=== PATIENT | male | born 1975 | race Two or more races ===

== ENCOUNTER 2016-09-01 01:58 | Inpatient (IN) | payer MEDICAID ==
[~2016-09-01] VITALS: Ht 165.1 cm; Wt 80.8 kg
[2016-09-01 01:40] VITALS: BP 167/103
[2016-09-01] MEDS ORDERED: NITROGLYCERIN 0.4 MG SL TAB SL PRN (03:15)
[2016-09-01] MEDS ORDERED: MORPHINE SULF INJ 2 MG/ML SYRINGE 1ML IV PRN (03:15)
[2016-09-01 03:39] LABS: Basophils # (auto) 0 uL; Basophils % (auto) 0.1 % (0.0-2.0); Eosinophils # (auto) 0.2 uL; Eosinophils % (auto) 1.8 % (0.0-7.0); Hematocrit 46.7 % (41.0-53.0); Lymphocytes % (auto) 23.5 % (10.0-50.0); Mean Corpuscular Hemoglobin 29.9 pg (28.0-32.0); Mean Corpuscular Hgb Conc. 34.2 g/dL (32.0-36.0); Mean Corpuscular Volume 87.3 fL (80.0-100.0); Mean Platelet Volume 9.3 fL (7.4-10.4); Monocytes # (auto) 1.2 uL; Monocytes % (auto) 9.5 % (0.0-12.0); Neutrophils # (auto) 8.4 uL; Neutrophils % (auto) 65.1 % (37.0-80.0); Platelet Count (auto) 241 10^3/uL (140-450); Red Cell Distribution Width 13.6 % (11.6-16.0); White Blood Cell 12.9 10^3/uL (4.4-10.8)
[2016-09-01] MEDS ORDERED: HEPARIN DRIP/D5W 100UNITS/ML 250 ML IV SCH (03:50)
[2016-09-01 04:00] VITALS: BP 153/101
[2016-09-01 04:02] LABS: Partial Thromboplastin Time 57.9 sec (22.64-33.71); Prothrombin Time 10.9 sec (9.37-12.3)
[2016-09-01 04:06] LABS: Calcium 8.9 mg/dL (8.5-10.1)
[2016-09-01 07:55] VITALS: BP 132/84
[2016-09-01] MEDS: ASPirin 325 MG TAB PO SCH (10:00)
[2016-09-01] MEDS: METOPROLOL TARTRATE 25 MG TAB PO SCH ×2 (10:00→22:57)
[2016-09-01 10:19] LABS: INR 1.06 (0.9-1.15); Prothrombin Time 11.6 sec (9.37-12.3)
[2016-09-01 10:24] LABS: Partial Thromboplastin Time 95.5 sec (22.64-33.71)
[2016-09-01] MEDS ORDERED: LIDOCAINE 2%HCL (LOCAL ANESTH.) INJ 20ML MDV ONE (11:17)
[2016-09-01] MEDS ORDERED: IOHEXOL 350 MG/ML 100ML IJ ONE (11:17)
[2016-09-01] MEDS ORDERED: MIDAZOLAM HCL 1MG/1ML-2 ML VIAL ONE (11:42)
[2016-09-01] MEDS ORDERED: ANGIOMAX 250 MG VIAL IV ONE (11:43)
[2016-09-01] MEDS ORDERED: fentaNYL CITRATE 100 MCG/2 ML VL ONE (11:43)
[2016-09-01] MEDS ORDERED: SODIUM CHL 0.9% 0 ML ONE (11:43)
[2016-09-01 11:53] VITALS: BP 145/83
[2016-09-01] MEDS ORDERED: EPTIFIBATIDE INJ (2MG/ML) 10ML VIAL IV ONE (12:24)
[2016-09-01] MEDS ORDERED: ADENOSINE 6 MG/2 ML INJ IV ONE (12:28)
[2016-09-01] MEDS ORDERED: EPTIFIBATIDE DRIP(0.75MG/ML) 100 ML IV ONE (13:04)
[2016-09-01] MEDS ORDERED: HYDROcodone-ACET 5/325MG TAB PO PRN (13:30)
[2016-09-01] MEDS ORDERED: HYDROmorphone HCL 2 MG/ML VL IV PRN (13:30)
[2016-09-01] MEDS: SODIUM CHLORIDE 0.9% 1,000 ML IV SCH ×2 (13:38→23:30)
[2016-09-01] MEDS: EPTIFIBATIDE DRIP(0.75MG/ML) 100 ML IV SCH ×2 (13:38→21:48)
[2016-09-01 15:46] LABS: INR 0.99 (0.9-1.15); Partial Thromboplastin Time 30.1 sec (22.64-33.71); Prothrombin Time 10.8 sec (9.37-12.3)
[2016-09-01 15:52] VITALS: BP 138/89
[2016-09-01 20:00] VITALS: BP 145/88
[2016-09-01] MEDS ORDERED: ATORVASTATIN 20 MG TAB PO SCH (22:00)
[2016-09-01] MEDS: ATORVASTATIN 20 MG TAB PO SCH (22:56)
[2016-09-02] VITALS: BP 149/88
[2016-09-02 04:00] VITALS: BP 156/91
[2016-09-02 05:23] LABS: Calcium 8.5 mg/dL (8.5-10.1)
[2016-09-02 08:00] VITALS: BP 147/100
[2016-09-02 09:06] LABS: Basophils # (auto) 0 uL; Basophils % (auto) 0.3 % (0.0-2.0); Eosinophils # (auto) 0.2 uL; Eosinophils % (auto) 1.4 % (0.0-7.0); Hematocrit 46.2 % (41.0-53.0); Hemoglobin 15.9 g/dL (13.5-17.5); Lymphocytes # (auto) 2.4 uL; Lymphocytes % (auto) 19.8 % (10.0-50.0); Mean Corpuscular Hemoglobin 29.9 pg (28.0-32.0); Mean Corpuscular Hgb Conc. 34.3 g/dL (32.0-36.0); Mean Corpuscular Volume 87.1 fL (80.0-100.0); Mean Platelet Volume 9.4 fL (7.4-10.4); Monocytes # (auto) 1.1 uL; Monocytes % (auto) 8.6 % (0.0-12.0); Neutrophils # (auto) 8.6 uL; Neutrophils % (auto) 69.9 % (37.0-80.0); Platelet Count (auto) 251 10^3/uL (140-450); Red Cell Distribution Width 13.4 % (11.6-16.0); White Blood Cell 12.3 10^3/uL (4.4-10.8)
[2016-09-02] MEDS: ASPirin 325 MG TAB PO SCH (10:57)
[2016-09-02] MEDS: METOPROLOL TARTRATE 25 MG TAB PO SCH (10:57)
[2016-09-02 12:00] VITALS: BP 136/91
[2016-09-02] MEDS ORDERED: PRASUGREL HCL 10 MG TAB PO ONE (12:30)
[2016-09-02 16:00] VITALS: BP 147/98
[2016-09-02 20:00] VITALS: BP 138/103
[2016-09-02] MEDS: ATORVASTATIN 20 MG TAB PO SCH (21:12)
[2016-09-02] MEDS: METOPROLOL TARTRATE 50 MG TAB PO SCH (21:13)
[2016-09-03] VITALS: BP 138/99
[2016-09-03 04:00] VITALS: BP 136/80
[2016-09-03 08:00] VITALS: BP 138/96
[2016-09-03] MEDS ORDERED: PRASUGREL HCL 10 MG TAB PO SCH (10:00)
[2016-09-03] MEDS: ASPirin 325 MG TAB PO SCH (10:16)
[2016-09-03] MEDS: METOPROLOL TARTRATE 50 MG TAB PO SCH (10:18)
[2016-09-03 12:00] VITALS: BP 136/95
[2016-09-03 15:06] VITALS: BP 132/76
== END 2016-09-03 16:45 | disposition home or self-care (01) | DRG 174 ==
LOC: DOU IN ICU 01:58
PROVIDERS: ADMIT Specialist; ATTEND Specialist
PROC: 4A023N7 Measurement of Cardiac Sampling and Pressure, Left Heart, Percutaneous Approach (ICD-10-PCS; principal; 2016-09-01)
PROC: 027034Z Dilation of Coronary Artery, One Artery with Drug-eluting Intraluminal Device, Percutaneous Approach (ICD-10-PCS; 2016-09-01)
PROC: 02C03ZZ Extirpation of Matter from Coronary Artery, One Artery, Percutaneous Approach (ICD-10-PCS; 2016-09-01)
PROC: 02703ZZ Dilation of Coronary Artery, One Artery, Percutaneous Approach (ICD-10-PCS; 2016-09-01)
PROC: B41F1ZZ Fluoroscopy of Right Lower Extremity Arteries using Low Osmolar Contrast (ICD-10-PCS; 2016-09-01)
PROC: B2111ZZ Fluoroscopy of Multiple Coronary Arteries using Low Osmolar Contrast (ICD-10-PCS; 2016-09-01)
DX: I21.29 ST elevation (STEMI) myocardial infarction involving other sites (principal); I10 Essential (primary) hypertension; Z82.49 Family history of ischemic heart disease and other diseases of the circulatory system
CPT/HCPCS: 36415; 71010; 80048; 84484; 85025; 85610; 85730; 86850; 86900; 86901; 87081; 93005; 99152; C1874; J0153; J2250